=== PATIENT | female | born 1995 | race Two or more races ===

== ENCOUNTER 2024-06-10 15:28 | Emergency (ER) | payer OTHER ==
[~2024-06-10] VITALS: Ht 160 cm; Wt 64.4 kg
[2024-06-10] MEDS ORDERED: KETOROLAC TROMETHAMINE 60 MG VIAL IM ONE (16:33)
[2024-06-10] MEDS ORDERED: CEFTRIAXONE SODIUM 1,000 MG VIAL ONE (16:34)
[2024-06-10 16:53] LABS: HEMATOCRIT 39.9 % (36.0-45.00); MEAN CELL VOLUME 83.9 fL (80.00-100.00); MEAN CORPUSCULAR HEMOGLOBIN 27.5 pg (27.00-32.0); MEAN CORPUSCULAR HGB CONC 32.7 g/dl (32.0-36.0); PLATELET COUNT 282 K/uL (150-450); RED BLOOD COUNT 4.75 M/uL (4.00-6.00); RED CELL DISTRIBUTION WIDTH 14.1 % (11.5-14.5)
[2024-06-10 16:59] LABS: URINE APPEARANCE Cloudy; URINE BILIRRUBIN Negative (NEGATIVE); URINE BLOOD Large; URINE COLOR Yellow; URINE GLUCOSE Negative (NEGATIVE); URINE KETONE Negative (NEGATIVE); URINE LEUKOCYTE Moderate; URINE NITRATE Negative
[2024-06-10 17:03] LABS: URINE BACTERIA 2528.6 uL (0.0-1933); URINE EPITHELIAL CELLS 26.4 uL (0.0-38.8); URINE RBC 2848.5 uL (0.0-20.8); URINE WBC 1198.2 uL (0.0-23.2)
[2024-06-10 17:19] LABS: URINE CAST 0.58 uL (0.0-1.40); URINE PROTEIN 300 (NEGATIVE)
== END 2024-06-10 17:44 | disposition home or self-care (01) ==
LOC: ER 15:28
PROVIDERS: General Practice
DX: N30.90 Cystitis, unspecified without hematuria (principal)

== ENCOUNTER 2024-11-29 10:41 | Outpatient (CLI) | payer OTHER | END 2024-11-29 10:43 | disposition home or self-care (01) | LOC: PRENATAL 10:41 | PROVIDERS: ATTEND Obstetrics & Gynecology Maternal & Fetal Medicine | DX: O44.00 Complete placenta previa NOS or without hemorrhage, unspecified trimester (principal); Z14.8 Genetic carrier of other disease; Z3A.21 21 weeks gestation of pregnancy ==

== ENCOUNTER 2025-01-17 09:33 | Outpatient (CLI) | payer OTHER | END 2025-01-17 09:34 | disposition home or self-care (01) | LOC: PRENATAL 09:33 | PROVIDERS: ATTEND Obstetrics & Gynecology Maternal & Fetal Medicine | DX: O26.849 Uterine size-date discrepancy, unspecified trimester (principal); O36.8199 Decreased fetal movements, unspecified trimester, other fetus; O44.00 Complete placenta previa NOS or without hemorrhage, unspecified trimester; Z14.8 Genetic carrier of other disease; Z3A.27 27 weeks gestation of pregnancy ==

== ENCOUNTER 2025-02-28 12:06 | Outpatient (CLI) | payer OTHER | END 2025-02-28 12:07 | disposition home or self-care (01) | LOC: PRENATAL 12:06 | PROVIDERS: ATTEND Obstetrics & Gynecology Maternal & Fetal Medicine | DX: O26.849 Uterine size-date discrepancy, unspecified trimester (principal); O36.8130 Decreased fetal movements, third trimester, not applicable or unspecified; Z14.8 Genetic carrier of other disease; O44.00 Complete placenta previa NOS or without hemorrhage, unspecified trimester; Z3A.33 33 weeks gestation of pregnancy ==

== ENCOUNTER → 2025-03-11 15:05 | Outpatient (CLI) | payer OTHER | END | disposition home or self-care (01) | LOC: PRENATAL 15:05 | PROVIDERS: ATTEND Obstetrics & Gynecology Maternal & Fetal Medicine | DX: O36.8130 Decreased fetal movements, third trimester, not applicable or unspecified (principal); O44.00 Complete placenta previa NOS or without hemorrhage, unspecified trimester; Z3A.36 36 weeks gestation of pregnancy ==